=== PATIENT | female | born 1935 | race Caucasian/White ===

== ENCOUNTER → 2016-08-11 | Outpatient (CLI) | payer OTHER ==
[~2016-08-11] MED LIST: ADVAIR 250-501 EACH IH; ALDACTONE PO; ASPIRIN EC PO; ASPIRIN PO; ASPIRIN81 M2 PO; ATIVAN0.5 MG PO; CALAN SR120 MG PO; CALCIUM 500 + D1 TAB PO; CARDIZEM CD120 MG PO; CITRATE OF MAG296 ML PO; CLARITIN10 M3 PO; CLOPIDOGREL75 MG PO; COMBIVENT U/D3 M4 INH; CORDARONE200 M1 PO; COUMADIN2.5 MG PO; COUMADIN5 MG PO; CYMBALTA20 MG PO; D-20002000 UNIT PO; DARVOCET-N 1001 TAB PO; DICLOFENAC; DULCOLAX; EX-LAX; GABAPENTIN300 MG PO; GLUCOVANCE 5/501 TA1; GLYB/METFORM; HCTZ; IRON PO; IRON325 ( 651 PO; JENTADUETO 2.51 EAC2 PO; KEFLEX PO; KOMBIGLYZE XR1 EAC1 PO; LANTUS INSULIN PO; LANTUS100 UNITS/ SUBQ; LASIX20 MG PO; LEVAQUIN PO; LEVOTHYROXINE25 MC1 PO; LIPITOR40 MG PO; LIVALO2 MG PO; LOSARTAN-HCTZ1 EACH PO; MAGNESIUM400 MG PO; MEDROL PO; METOPROLOL TAR100 MG PO; MONOPRIL HCT 201 TAB PO; NEURONTIN300 MG PO; NOVOLIN 70100 UNITS/ SUBQ; OMNICEF300 MG PO; OS-CAL 500 + D500 MG PO; PACERONE PO; PLAVIX PO; PLETAL100 M1 PO; PRILOSEC PO; PROAIR HFA INH; PROTONIX PO; PROTONIX20 MG PO; SPIRONOLACTONE50 MG PO; SYMBICORT80 INH; TRENTAL400 MG PO; TYLENOL #3 PO; VALTREX500 MG PO; VERAPAMIL; VERAPAMIL ER100 MG PO; VITAMIN D2000 UNI1 PO; ZOCOR PO; ZOCOR20 MG PO
--- NOTE | ~2016-08-11 | BD1 ---
[facility] A Service of [facility] & [facility] RADIOLOGY TEXT RESULTS PATIENT: JOESPH MIDDLETON LOCATION: [facility] : [birth year] UNIT #: [id number] AGE: [address]: Michael Orta MD SEX: F ORDER DR: [id number] [facility] [address] [facility]. [place], [place] [address] [id number] O MR#: [id number] Acc #: [id number] NAME: JOESPH MIDDLETON : 1935 SEX: F STUDY DATE/TIME: 08/11/2016 11:35 UNIT: [facility] ROOM: STUDY DESCRIPTION: BD Dexa Bone Dens 1+ Site Attending Physician: Michael Orta M.D. Referring Physician: Michael Orta M.D. Ordering Physician: Michael Orta M.D. Primary Care Physician: Michael Orta M.D. MEDICAL IMAGING REPORT This report is preliminary unless electronic signature is present EXAM DXA scan 08/11/2016 HISTORY Status post menopause with no hormone replacement therapy. Osteopenia. Hysterectomy at age 38. Breast carcinoma and radiation therapy. Arthritis and diabetes. Hypertension with blood pressure medication. Thyroid medication. Smoking history for 20 years. FINDINGS Bone mineral density in the lumbar spine from L1-L4 is 1.036 g/cm2 which is 0.1 standard deviations below the mean when compared to the young adult reference population which is within the range of normal. This is 2.7 standard deviations above the mean when compared to the age-matched population. Bone mineral density in the left femoral neck was 0.74 g/cm2 which is 1.0 standard deviations below the mean when compared to the young adult reference population which is characteristic of osteopenia. This is 1.4 standard deviations above the mean when compared to the age-matched population. IMPRESSION Bone mineral density in the lumbar spine within the range of normal and within the left hip characteristic of osteopenia. Dictated by... Regan Mobley M.D. THIS IS AN ELECTRONICALLY VERIFIED REPORT Regan Mobley M.D. at 08/14/2016 2:17 PM KRT/pcl STS. [facility] A Service of [facility] & [facility] RADIOLOGY TEXT RESULTS PATIENT: JO[facility]PH MIDDLETON [id number] [birth year] UNIT #: [id number] AGE: [address]: Michael Orta MD SEX: F ORDER DR: TD: 08/11/2016 17:50 JOB #: [id number] MEDICAL IMAGING REPORT Page 1 of 1 COPY
== END | disposition home or self-care (01) ==
LOC: CWCC 11:06
DX: N95.9 Unspecified menopausal and perimenopausal disorder (principal); M85.88 Other specified disorders of bone density and structure, other site; Z88.2 Allergy status to sulfonamides; Z88.8 Allergy status to other drugs, medicaments and biological substances
CPT/HCPCS: 77080

== ENCOUNTER 2016-11-05 00:08 | Inpatient (IN) | payer OTHER ==
[~2016-11-05] VITALS: Ht 157.5 cm; Wt 75.6 kg
--- NOTE | ~2016-11-05 | CR151 ---
[facility] A Service of [facility] & [facility] RADIOLOGY TEXT RESULTS PATIENT: JOESPH MORE LOCATION: [place] [address]- : [birth year] UNIT #: [id number] AGE: [address]: Albert Rich MD SEX: F ORDER DR: [id number] [facility] [address] [place], [place] [address] [id number] I MR#: [id number] Acc #: [id number] NAME: JOESPH MORE : 1935 SEX: F STUDY DATE/TIME: 11/05/2016 00:21 UNIT: [facility] ROOM: [facility] STUDY DESCRIPTION: CR Hip Min 2 Views Rt Attending Physician: Albert Rich M.D. Ordering Physician: Eze Araujo M.D. Primary Care Physician: Michael Orta M.D. MEDICAL IMAGING REPORT This report is preliminary unless electronic signature is present EXAM Right hip and pelvis, 11/05 at 00:21 INDICATIONS Right hip pain after a fall today. FINDINGS AP pelvis was obtained in addition to a frogleg right hip. Comparison made with CT pelvis from 10/23/2013. Incidental note is made of diffuse atherosclerotic disease. No acute fracture or malalignment is identified. There is bilateral hip osteoarthritis. The femoral heads are normal without evidence of osteonecrosis. IMPRESSION Hip osteoarthritis with atherosclerotic disease. No acute fracture. Dictated by... Jean Bennett Jr., M.D. THIS IS AN ELECTRONICALLY VERIFIED REPORT Jean Bennett Jr., M.D. at 11/05/2016 9:22 PM HIRAL/patric TD: 11/05/2016 14:57 JOB #: [id number] MEDICAL IMAGING REPORT Page 1 of 1 COPY
--- NOTE | ~2016-11-05 | DS ---
Unit #: [id number] #: [id number] Patient: JOESPH MORE [id number] [address] [address] [id number] I MR#: [id number] NAME: JOESPH MORE ROOM: 55 Age: 80 Sex: F Admission Date: 11/05/2016 : 1935 Discharge Date: 11/07/2016 Attending Physician: Pam Hicks M.D. Primary Care Physician: Michael Orta M.D. DISCHARGE SUMMARY PRIMARY CARE PROVIDER Dr. Orta. PRINCIPAL DIAGNOSES 1. Sepsis secondary to Escherichia coli urinary tract infection. 2. Paroxysmal atrial fibrillation/atrial flutter with rapid ventricular response, now converted to normal sinus rhythm. 3. Subtherapeutic INR. 4. Acute coronary syndrome secondary to #1, now resolved. 5. Coronary artery disease, medical management. 6. Macrocytic anemia likely secondary to underlying obstructive sleep apnea. 7. Hypertension. 8. Diabetes mellitus type 2, insulin requiring, controlled. 9. Chronic kidney disease, stage 3 with baseline creatinine approximately 1.3, discharge creatinine 1.5. 10. Gastroesophageal reflux disease. 11. Normocytic anemia. 12. Hypothyroidism. 13. Depression. 14. Seasonal allergies. 15. Prior history of stroke. 16. History of breast cancer. 17. Obesity. 18. Moderate protein malnutrition. 19. Peripheral arterial disease. 20. Hypomagnesemia. 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 PROCEDURES 1. X-ray of right hip on 11/05/2016 with osteoarthritis and atherosclerotic disease. X-ray of lumbar spine on 11/05/2016 with diffuse degenerative changes, no acute fracture, atherosclerotic disease noted. Chest x-ray on 11/05/2016 with cardiomegaly and right basilar scarring, no acute findings. 2. Bilateral renal ultrasound on 11/05/2016 with some right-sided hydronephrosis. 3. CT of abdomen and pelvis without contrast on 11/06/2016 with no acute findings. There is a prominent extrarenal pelvis on the right, but no evidence of hydronephrosis. 4. Right lower extremity venous Doppler, which was negative for DVT. Unit #: [id number] #: [id number] Patient: JOESPH MORE CLINICAL HISTORY AND HOSPITAL COURSE Ms. More is a very nice 80-year-old female, who presents to the emergency department with fever, body aches, and right lower extremity pain. In the emergency department, the patient was found to be febrile and was also in atrial fibrillation with a heart rate of 135. Urinalysis was concerning for urinary tract infection. The patient was subsequently admitted. In regard to the patient's atrial fibrillation, Cardiology was consulted. The patient was initially placed on Cardizem drip with good rate control and this was subsequently changed to oral Cardizem. At this time, the patient has converted to normal sinus rhythm. She is maintained on chronic Coumadin, but this was mildly subtherapeutic. I am going to give her a single dose of therapeutic Lovenox today, increased the dose of Coumadin and have this followed closely by home health at home. The patient also had a mild increase in troponin. Initial troponin was 0.79, which was peak and subsequently trended down. Plan is medical management only. The patient has been changed from cilostazol to Plavix. In regard to the patient's sepsis with associated UTI, she was placed on empiric Rocephin. Urine culture has grown Escherichia coli and we will change her to Omnicef. Associated sepsis has resolved. The patient was also found to have a macrocytic anemia, vitamin B12 level is actually elevated at greater than 1000. I suspect she has some underlying obstructive sleep apnea which is untreated and this can be addressed on an outpatient basis. The patient also has chronic kidney disease, but creatinine has remained stable throughout hospitalization at 1.5. This can be followed up as an outpatient. We will continue Lasix on a p.r.n. basis only. The patient underwent right renal ultrasound due to her UTI. There is no evidence of pyelo, but she was found to have questionable right side hydronephrosis. This was not seen on CT scan. Again, there was no evidence of pyelo. This can be followed up as an outpatient. The patient will be discharged home later today. DISCHARGE CONDITION Stable. DISCHARGE STATUS Discharged to home. DISCHARGE MEDICATIONS Magnesium 400 mg p.o. b.i.d. for 1 week, Coumadin 3 mg daily with goal INR of 2 to 3, Cymbalta 20 mg daily, Claritin 10 mg daily, Valtrex 500 mg daily, Cardizem CD 120 mg b.i.d., metoprolol tartrate 200 mg b.i.d., Omnicef 300 mg p.o. b.i.d. for 5 days, Novolin 70/30 of 10 units subcu b.i.d., Plavix 75 mg daily, Protonix 40 mg daily, levothyroxine 12.5 mcg p.o. daily. DISCHARGE INSTRUCTIONS The patient was instructed to follow heart healthy, constant carb diet. She will continue Accu-Cheks as she was doing home previously. She can increase her activity as tolerated. Unit #: [id number] #: [id number] Patient: JOESPH MORE FOLLOWUP The patient will follow up with Dr. Bridges as instructed. The patient will follow up with her primary care provider, Dr. Orta in 2 weeks. She needs followup INR done on 11/08/2016 per Home Health with goal INR of 2 to 3. Needs outpatient polysomnography as well. Time spent on discharge today 34 minutes. Dictated by... Pam Hicks M.D. SWATI/chris TD: 11/09/2016 05:22 JOB #: [id number] DISCHARGE SUMMARY Page 1 of 1 X Pam Hicks MD X DISCHARGE SUMMARY
--- NOTE | ~2016-11-05 | EKG ---
PATIENT: JOESPH MORE UNIT #: [id number] Ventricular Rate: 88 BPM Atrial Rate: 288 BPM QRS Duration: 78 ms Q-T Interval: 384 ms QTC Calculation(Bezet): 464 ms P [place]: 105 degrees Calculated R [place]: 18 degrees Calculated T [place]: 95 degrees Diagnosis Line: Atrial flutter with variable A-V block with PVC's Diagnosis Line: Abnormal QRS-T angle, consider primary T wave Diagnosis Line: abnormality Diagnosis Line: Abnormal ECG Diagnosis Line: Diagnosis Line: Confirmed by GERDA MAYO MD ([id number]) on Diagnosis Line: 11/06/2016 8:19:44 PM INTERPRETING MD: EILEEN
--- NOTE | ~2016-11-05 | EKG ---
PATIENT: JOESPH MORE UNIT #: [id number] Ventricular Rate: 132 BPM Atrial Rate: 138 BPM QRS Duration: 82 ms Q-T Interval: 300 ms QTC Calculation(Bezet): 444 ms Calculated R [place]: -6 degrees Calculated T [place]: 108 degrees Diagnosis Line: Atrial flutter with rapid ventricular response Diagnosis Line: ST and T wave abnormality, consider lateral ischemia Diagnosis Line: Abnormal ECG Diagnosis Line: Diagnosis Line: Confirmed by GERDA MAYO MD ([id number]) on Diagnosis Line: 11/06/2016 8:16:23 PM INTERPRETING MD: EILEEN
--- NOTE | ~2016-11-05 | HP ---
Unit #: [id number] #: [id number] Patient: JOESPH MORE [id number] [address] [address] [id number] I MR#: [id number] NAME: JOESPH MORE ROOM: [facility] Age: 80 Sex: F Admission Date: 11/05/2016 : 1935 Attending Physician: Albert Rich M.D. Primary Care Physician: Michael Orta M.D. HISTORY AND PHYSICAL CHIEF COMPLAINT Fever, body aches, right lower extremity pain. HISTORY OF PRESENT ILLNESS The patient is an 80-year-old female with multiple comorbidities including diabetes, hypertension, history of stroke and atrial fibrillation who presented to the emergency room because of two days of generalized malaise, fatigue, body aches. Today prior to admission she developed nausea and some clear vomiting and developed some low back pain and right lower extremity pain that she describes on the lateral aspect of the thigh. In the emergency room she was noted to have a temperature of 101.1, her heart rate was 135 and she was noted to be in atrial fibrillation with a rapid ventricular response. She received a dose of Rocephin and was started on a Cardizem drip. She also received some fluids and a dose of morphine that helped control the pain. Her heart rate was controlled as well. The patient also mentions some mild cough with clear sputum that she developed over the last week but no shortness of breath. She denies any chest pain, palpitations. She does mention a history or urinary tract infections but no kidney stones. PAST MEDICAL HISTORY 1. Significant for diabetes. 2. Hypertension. 3. History of a stroke. 4. History of breast cancer, status post lumpectomy and radiation to the right breast approximately 8 years ago. 5. Chronic kidney disease stage 3. 6. History of stroke with residual left vision decreased. 7. History of a hiatal hernia, GERD, and Spring erosions. 8. History of a cholecystitis and cholecystectomy. 9. Hypothyroidism. PAST SURGICAL HISTORY 1. Hysterectomy. 2. Right lumpectomy. 3. Cholecystectomy. 4. Vein ligation. 5. 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 ALLERGIES Per records, the patient is allergic to sulfas, POPEYE inhibitors, and prednisone. Unit #: [id number] #: [id number] Patient: JOESPH MORE HOME MEDICATIONS 1. Cilostazol 100 mg p.o. b.i.d. 2. Cymbalta 20 mg daily. 3. Lasix 20 mg daily p.r.n. 4. Levothyroxine 12.5 mg p.o. daily. 5. Carotin 1 mg daily. 6. Losartan/HCTZ 50/12.5 mg daily. 7. Metoprolol 200 mg p.o. b.i.d. 8. Protonix 40 mg daily. 9. Valtrex 500 mg daily. 10. Coumadin 2.5 mg p.o. daily. FAMILY HISTORY No history of cancer. There is some heart disease in first degree relatives. SOCIAL HISTORY The patient denies smoking currently. Quit approximately 10 years ago. Used to smoke one pack a day for 40 years. Denies drug and alcohol. Using any illicit drugs. She is independent in her activities of daily living. She lives with her and her daughter. REVIEW OF SYSTEMS Significant for what was mentioned in the history of present illness. The patient also had approximately 1 week prior to admission, a problem with what seemed to be an allergic reaction in her eyes and was started on Prednisone, however, she developed elevated blood pressure, increased heart rate and elevated glucose levels. Her executive chairman of the board, (1) discontinued the prednisone and adjusted the dose of her metoprolol. Otherwise a twelve point review of systems is negative except for what is already mentioned. PHYSICAL EXAMINATION VITAL SIGNS: T. max in the emergency room 101.1, heart rate 135, respiratory rate 20, oxygen saturation 95%. Most recent vital signs: Temperature 97.9, heart rate of 100, respiratory rate of 16, blood pressure 138/67, and oxygen saturation of 94% on room air. GENERAL APPEARANCE: She is a well developed female in no acute distress. HEENT: Pupils are equal and reactive to light and accommodation. Conjunctivae is pinkish. Moist mucous membranes. NECK: Supple. No JVD. No lymphadenopathy. CHEST: Clear to auscultation bilaterally. CARDIOVASCULAR: Irregularly irregular, mildly tachycardic. ABDOMEN: Bowel sounds are present and normal. The abdomen is soft and with mild tenderness to palpation in the right lower quadrant. No guarding or rebound. BACK: There is some CVA tenderness more in the left than on the right. EXTREMITIES: There is no edema. Range of motion is preserved. No trigger points specifically on the right lower extremity. NEUROLOGIC: She is awake, alert and oriented x3. Strength is 5/5 in four extremities. DIAGNOSTIC STUDIES LABORATORY DATA: Troponin was initially elevated at 0.33 and increased to 0.79 subsequently. WBC count was 10,000. UA was abnormally suggestive of a urinary tract infection. Unit #: [id number] #: [id number] Patient: JOESPH MORE CARDIOLOGY STUDIES: A 12 lead EKG showed atrial fibrillation with rapid ventricular response with a hearty rate of 132. Repeat EKG showed some indeterminate ST-T segment abnormalities but no ST elevation. ASSESSMENT AND PLAN Ms. More is an 80-year-old lady with multiple comorbidities, presented with body aches, fever and tachycardia. 1. Sepsis and pyelonephritis. Her lactic acid was normal at 1.0. She has been started already on antibiotics with Rocephin and blood cultures have been obtain and urine culture results in process. Will continue with Rocephin, cautiously continue with IV fluids. 2. Elevated troponin likely related to ischemia and atrial fibrillation. Cardiology is consulted. The patient is already on anticoagulation that we will continue. She has received 1 dose of aspirin in the emergency room. 3. Atrial fibrillation with rapid ventricular response are controlled on Cardizem, cardiology is being consulted. 4. Right lower extremity pain, unclear etiology but could be related to a complicated urinary tract infection, perhaps kidney stones or pyelonephritis. There is no local evidence of warmth or signs of cellulitis or a local infection. The right of motion in the hip and knee are also normal. Will monitor after antibiotics treatment and consider an imaging study of the lower back depending on her progress. 5. Diabetes, will keep her on Accu-Cheks q. a.c. and q.h.s. and insulin sliding scale. 6. Hypertension, seems controlled at this time. Will continue with her home regimen. 7. Hypothyroidism, continue with levothyroxine. 8. History of stroke, continue with anticoagulation. 9. GERD and history of (1) erosions. Will keep the patient on PPIs. 10. DVT prophylaxis, the patient is on anticoagulation. Code status, the patient has expressed that she wants to pursue overall aggressive care but wants to be a DNR. Dictated by Michelle White/kolby TD: 11/05/2016 12:04 JOB #: [id number] Unit #: [id number] #: [id number] Patient: JOESPH MORE HISTORY AND PHYSICAL Page 1 of 1 X X HISTORY AND PHYSICAL
--- NOTE | ~2016-11-05 | CR72 ---
[facility] A Service of [facility] & [facility] RADIOLOGY TEXT RESULTS PATIENT: JOESPH MORE LOCATION: [place] [address]- : [birth year] UNIT #: [id number] AGE: [address]: Albert Rich MD SEX: F ORDER DR: [id number] [facility] [address] [place], [place] [address] [id number] I MR#: [id number] Acc #: [id number] NAME: JOESPH MORE : 1935 SEX: F STUDY DATE/TIME: 11/05/2016 03:21 UNIT: [facility] ROOM: [facility] STUDY DESCRIPTION: CR Chest Single View Portable Attending Physician: Albert Rich M.D. Ordering Physician: Eze Araujo M.D. Primary Care Physician: Michael Orta M.D. MEDICAL IMAGING REPORT This report is preliminary unless electronic signature is present EXAM Portable chest, 11/05 at 03:21 hours INDICATION Shortness of air today. Fall today. FINDINGS AP portable chest is compared with 04/12/2013. Heart is enlarged. Lung volumes are low. Pleural plaques noted right hemithorax. There is some scarring at the right base. No pneumothorax is seen. IMPRESSION Stable cardiomegaly. Low lung volumes with right basilar scarring. Right side pleural plaque noted. No definite acute findings in the chest. Dictated by... Jean Bennett Jr., M.D. THIS IS AN ELECTRONICALLY VERIFIED REPORT Jean Bennett Jr., M.D. at 11/05/2016 9:23 PM HIRAL/patric TD: 11/05/2016 15:21 JOB #: [id number] MEDICAL IMAGING REPORT Page 1 of 1 COPY
--- NOTE | ~2016-11-05 | CO ---
Unit #: [id number] #: [id number] Patient: JOESPH MORE [id number] [address] [place], [place] [address] [id number] I MR#: [id number] NAME: JOESPH MORE ROOM: 55 Age: 80 Sex: F Admission Date: 11/05/2016 : 1935 Attending Physician: Albert Rich M.D. Primary Care Physician: Michael Orta M.D. CONSULTATION REPORT REASON FOR CONSULTATION Elevated troponin, and atrial fibrillation with rapid ventricular response. HISTORY OF PRESENT ILLNESS This is a pleasant 80-year-old, female with multiple medical issues. She has a past medical history significant for diabetes mellitus, hypertension, hyperlipidemia, stroke in 2011, paroxysmal atrial fibrillation, on anticoagulation with Coumadin, degenerative joint disease, breast cancer, status post lumpectomy and radiation. She states she follows with Dr. Phillips at [facility] for her heart issues. The patient initially presented to the emergency room secondary to complaints of not feeling well for the past several days. She reports yesterday she developed pain in her upper left thigh area as well as shaking chills associated with vomiting and just generalized malaise and fatigue with body aches. In the emergency room, she was noted to have a temperature of a 101.1, was noted to be in atrial fibrillation with rapid ventricular response rate of 135 beats per minute. She did get IV antibiotics, and was given Cardizem bolus and started on a Cardizem drip. She denies any complaints of chest pain. She does report she felt intermittent palpitations and occasional shortness of breath. EKG shows atrial fibrillation at 97 beats per minute. Septal infarct cannot be excluded. No acute ischemic changes noted. Initial point of care troponin was 0.33, repeat was 0.43, and this morning's troponin was 0.79. At present, she is resting in bed. Her daughter is at bedside. The patient was also noted to have a urinary tract infection and pyelonephritis. She denies any complaints of chest pain. The patient did have cardiac catheterization in 2004, which showed normal coronary anatomy. 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 We were asked to see for evaluation of the above. PAST MEDICAL HISTORY 1. Hypertension. 2. Hyperlipidemia. 3. 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 4. A 2D echocardiogram in 2011 showed ejection fraction of greater than 55% with moderate mitral regurgitation and a trace of tricuspid regurgitation. 5. History of stroke in 2011. 6. History of breast cancer status post lumpectomy and radiation approximately eight years ago. 7. Chronic kidney disease. Unit #: [id number] #: [id number] Patient: JOESPH MORE 8. Hypothyroidism. PAST SURGICAL HISTORY Hysterectomy, right breast lumpectomy, cholecystectomy, vein ligation, and cardiac catheterization. ALLERGIES Sulfa, POPEYE inhibitors and prednisone. MEDICATIONS Home medications, Pletal 100 mg p.o. b.i.d., Cymbalta 20 mg p.o. daily, Lasix 20 mg p.o. daily p.r.n., levothyroxine 12.5 mg p.o. daily, Claritin 10 mg p.o. daily, Losartan/hydrochlorothiazide 50/12.5 one p.o. daily, metoprolol tartrate 200 mg p.o. b.i.d., Protonix 40 mg p.o., Valtrex 500 mg p.o. daily, Coumadin 2.5 mg p.o. daily. FAMILY HISTORY Denies coronary artery disease. SOCIAL HISTORY The patient lives with her and sister. She is a reformed tobacco user. Quit approximately 40 years ago. Prior to that, she smoked about a pack a day for 35 plus years. Denies illicit drugs or alcohol. REVIEW OF SYSTEMS Negative except for what was stated above in the HPI. PHYSICAL EXAMINATION VITAL SIGNS: T-max of 101.1 respiratory rate 18, pulse 90s to 102, blood pressure 138/67, and 151/80. GENERAL: This is a very pleasant 80-year-old female, in no acute distress. HEENT: Head is atraumatic and normocephalic. Pupils are equal and round. Mucous membranes are moist. Neck, trachea supple. No lymphadenopathy. Positive for JVD. LUNGS: Clear to auscultation anterior. Some fine rales in the bases with scattered wheezing. CARDIOVASCULAR: S1, S2. Irregularly irregular. No murmur, gallop, or rub. ABDOMEN: Soft, nontender, and nondistended. Bowel sounds are present. EXTREMITIES: Pulses are palpable. No clubbing, cyanosis, or edema is noted. NEUROLOGIC: She is awake, alert, and oriented. She moves extremities equally. She follows commands with ease. DIAGNOSTIC STUDIES Troponin initial was 0.33, repeat was 0.43, this morning was it was 0.79. Sodium 134, potassium 3.8, chloride 103, CO2 of 23, BUN 29, creatinine 1.5, glucose 167. PT 22.1. INR 2.0. D-dimer 631. Hemoglobin 12.5, and hematocrit 38.0. WBCs 10.6, and platelet count of 242. The lipid panel is currently pending. Urinalysis shows 3+ leukocyte esterase, positive for nitrates positive for protein, 1+, blood, rbc's 5 to 10, wbc's 100 to 200, 4+ bacteria. Culture is pending. She also has blood cultures which were pending. Imaging, x-ray of the right hip shows hip osteoarthritis with atherosclerotic disease. No acute fracture. Unit #: [id number] #: [id number] Patient: JOESPH MORE Lumbar spine x-ray shows fairly diffuse degenerative disease. No acute fracture. Also noted extensive atherosclerotic disease. Cardiovascular EKG shows atrial fibrillation with rate of 97 beats per minute, cannot rule out septal infarct. QTc interval 477 milliseconds. No acute ischemic change is seen. IMPRESSION 1. Urinary tract infection, culture pending. 2. Pyelonephritis per primary MD. She has been started on antibiotics and blood cultures are currently pending. 3. Elevated troponin initially 0.33 to 0.43. This morning, it peaked at 0.79. 4. Rule in for non ST-elevation myocardial infarction. 5. Atrial fibrillation with rapid ventricular response. 6. Diabetes mellitus. 7. Hypertension. 8. Hyponatremia. 9. History of stroke. 10. History of breast cancer status post lumpectomy and radiation. 11. Chronic kidney disease. 12. Hypothyroidism. 13. We have been asked to see the patient secondary to elevated troponin and rapid atrial fibrillation with rapid ventricular response. She is currently on a Cardizem drip. This has been discontinued and the patient has been started on Cardizem 60 mg p.o. q.6, hold for systolic blood pressure less than 100 and heart rate less than 55. Her troponin is also currently 0.79. EKG shows no acute ischemic change; however, she has ruled in for non-ST elevated myocardial infarction. She did have a cardiac catheterization in 2004, which showed normal coronary arteries. She currently has an INR of 2.0 and is currently receiving IV fluids. Her IV fluids have been discontinued. Her losartan hydrochlorothiazide has also been discontinued. She will be started on Plavix 75 mg p.o. daily as well as given one time dose of Lasix now as she appears to be fluid overloaded. We will continue to trend cardiac enzymes. Repeat EKG and PT/INR tomorrow in the morning as well as a CBC, BMP and a BNP. If her troponin continues to climb, would recommend cardiac catheterization. At this time. We will continue with medical prescription for coronary artery disease. Further recommendations to follow pending Dr. Bridges's assessment. She currently has a venous Doppler of her lower extremities, which is pending. Dictated by... Lacy Nelson A.P.R.N. LMW/modl TD: 11/06/2016 02:34 JOB #: [id number] Unit #: [id number] #: [id number] Patient: JOESPH MORE CONSULTATION REPORT Page 1 of 1 X Lacy Nelson APRN X CONSULTATION REPORT
--- NOTE | ~2016-11-05 | CT4 ---
[facility] A Service of [facility] RADIOLOGY TEXT RESULTS PATIENT: JOESPH MORE LOCATION: [facility] 55-01 : 33 UNIT #: [id number] AGE: [address]: Pam Hicks MD SEX: F ORDER DR: [id number] [facility] [address]. [place], [place] [address] [id number] I MR#: [id number] Acc #: [id number] NAME: JOESPH MORE : 1935 SEX: F STUDY DATE/TIME: 11/06/2016 12:12 UNIT: [facility] ROOM: [facility] STUDY DESCRIPTION: CT Abd and Pelv Wo Cont Attending Physician: Pam Hicks M.D. Ordering Physician: Pam Hicks M.D. Primary Care Physician: Michael Orta M.D. MEDICAL IMAGING REPORT This report is preliminary unless electronic signature is present EXAM CT abdomen and pelvis without contrast INDICATION Generalized body aches and fever since 11/05/2016. Right-sided hydronephrosis on previous ultrasound. PROCEDURE Unenhanced CT abdomen and pelvis. This CT exam was performed with one or more of the following radiation dose reduction techniques: automatic exposure control, adjustment of mA and/or kV according to patient size, and iterative reconstruction. COMPARISON FINDINGS Persistent bronchiectasis and volume loss in the right lower lobe. There are a few scattered areas of tree-in-bud nodularity throughout the right lower lobe, suggesting infectious or inflammatory small airways disease. Cardiomegaly. ABDOMEN WITHOUT CONTRAST: The liver, spleen, pancreas unremarkable. Previous cholecystectomy. Common duct measures up to 1.4 cm and is stable. No evidence for radiodense common duct stone. Small hiatal hernia. Uncomplicated sigmoid diverticula. Moderate colonic stool burden. Appendix is normal. There are bilateral benign adrenal adenomas which are unchanged. Mild prominence of the right renal pelvis without hydronephrosis, most in [facility] A Service of [facility] RADIOLOGY TEXT RESULTS PATIENT: JOESPH MORE LOCATION: [facility] 552-01 : 33 UNIT #: [id number] AGE: [address]: Pam Hicks MD SEX: F ORDER DR: keeping with a prominent extrarenal pelvis. This is stable. No radiodense urinary system calculus. PELVIS WITHOUT CONTRAST: No radiodense bladder calculus. Previous hysterectomy and no pelvic mass. No aggressive-appearing bone lesion. IMPRESSION 1. No clearly acute finding in the abdomen or pelvis. 2. Prominent extrarenal pelvis on the right is stable since the previous study and there is no hydronephrosis. 3. Incidental findings are detailed above. Dictated by... William Isabel M.D. THIS IS AN ELECTRONICALLY VERIFIED REPORT William Isabel M.D. at 11/07/2016 8:29 AM ADIN/nette TD: 11/06/2016 22:16 JOB #: [id number] MEDICAL IMAGING REPORT Page 1 of 1 COPY
--- NOTE | ~2016-11-05 | US77 ---
[facility] A Service of [facility] RADIOLOGY TEXT RESULTS PATIENT: JOESPH MORE LOCATION: [place] [address] : [birth year] UNIT #: [id number] AGE: [address]: Pam Hicks MD SEX: F ORDER DR: [id number] [place] [id number] [place], [place] [address] [id number] I MR#: [id number] Acc #: [id number] NAME: JOESPH MORE : 1935 SEX: F STUDY DATE/TIME: 11/05/2016 10:14 UNIT: [facility] ROOM: [facility] STUDY DESCRIPTION: US Kidney Bilateral Complete Attending Physician: Albert Rich M.D. Ordering Physician: Physician Non-Staff Primary Care Physician: Michael Orta M.D. MEDICAL IMAGING REPORT This report is preliminary unless electronic signature is present EXAM Renal ultrasound INDICATIONS Pyelonephritis. Patient has a GFR of 32.1. TECHNIQUE Thomas-scale and color Doppler sonographic images were obtained through the kidneys and bladder. FINDINGS This patient does appear to have at least mild right-sided hydronephrosis. Visualization of the left kidney, in particular, is extremely poor although I do not see any maxi hydronephrosis on the left. Urinary bladder appears unremarkable. IMPRESSION Patient does appear to have some hydronephrosis on the right, etiology is uncertain on the basis of these images. Further evaluation with CT is recommended. Please note contrast-enhanced CT would be far more sensitive for the evaluation of pyelonephritis. No obvious hydronephrosis is seen on the left. Dictated by... Mindi Ventura M.D. THIS IS AN ELECTRONICALLY VERIFIED REPORT Mindi Ventura M.D. at 11/06/2016 5:38 PM AFF/psc TD: 11/05/2016 20:53 JOB #: [id number] [facility] A Service [facility] RADIOLOGY TEXT RESULTS PATIENT: JOESPH MORE [facility] [address] [id number] [birth year] UNIT #: [id number] AGE: [address]: Pam Hicks MD SEX: F ORDER DR: MEDICAL IMAGING REPORT Page 1 of 1 COPY
--- NOTE | ~2016-11-05 | EKG ---
PATIENT: JOESPH MORE UNIT #: [id number] Ventricular Rate: 105 BPM Atrial Rate: 111 BPM QRS Duration: 74 ms Q-T Interval: 376 ms QTC Calculation(Bezet): 496 ms Calculated R [place]: 6 degrees Calculated T [place]: 108 degrees Diagnosis Line: Atrial flutter with rapid ventricular response Diagnosis Line: Abnormal QRS-T angle, consider primary T wave Diagnosis Line: abnormality Diagnosis Line: Abnormal ECG Diagnosis Line: Diagnosis Line: Confirmed by GERDA MAYO MD ([id number]) on Diagnosis Line: 11/06/2016 8:24:36 PM INTERPRETING MD: EILEEN
--- NOTE | ~2016-11-05 | CR181 ---
[facility] A Service of [facility] RADIOLOGY TEXT RESULTS PATIENT: JOESPH MORE LOCATION: [place] [address]- : [birth year] UNIT #: [id number] AGE: [address]: Albert Rich MD SEX: F ORDER DR: [id number] [facility] [address] [place], [place] [address] [id number] I MR#: [id number] Acc #: [id number] NAME: JOESPH MORE : 1935 SEX: F STUDY DATE/TIME: 11/05/2016 02:18 UNIT: [facility] ROOM: [facility] STUDY DESCRIPTION: CR Lumbar Spine 2 or 3 Views Attending Physician: Albert Rich M.D. Ordering Physician: Eze Araujo M.D. Primary Care Physician: Michael Orta M.D. MEDICAL IMAGING REPORT This report is preliminary unless electronic signature is present EXAM Lumbar spine, 11/05 at 02:18 INDICATIONS Low back pain after a fall today. FINDINGS Three views of the lumbar spine are compared with 07/06/2013. There is multilevel degenerative disease as seen previously. This consists of degenerative disc disease as well as facet arthropathy. No acute compression fractures are identified. Alignment is stable. Note is made of fairly extensive atherosclerotic disease. IMPRESSION Fairly diffuse degenerative disease as seen previously. No acute fractures. Also noted is extensive atherosclerotic disease. Dictated by... Jean Bennett Jr., M.D. THIS IS AN ELECTRONICALLY VERIFIED REPORT Jean Bennett Jr., M.D. at 11/05/2016 9:22 PM HIRAL/patric TD: 11/05/2016 14:28 JOB #: [id number] MEDICAL IMAGING REPORT Page 1 of 1 COPY
--- NOTE | ~2016-11-05 | EKG ---
PATIENT: JOESPH MORE UNIT #: [id number] Ventricular Rate: 97 BPM Atrial Rate: 89 BPM QRS Duration: 78 ms Q-T Interval: 376 ms QTC Calculation(Bezet): 477 ms Calculated R [place]: 3 degrees Calculated T [place]: 69 degrees Diagnosis Line: Atrial fibrillation Diagnosis Line: Septal infarct , age undetermined Diagnosis Line: Abnormal ECG Diagnosis Line: Diagnosis Line: Confirmed by PHUONG FRANK MD ([id number]) on Diagnosis Line: 11/06/2016 7:54:38 AM INTERPRETING MD: ZAC SERVIN
--- NOTE | ~2016-11-05 | EKG ---
PATIENT: JOESPH MORE UNIT #: [id number] Ventricular Rate: 100 BPM Atrial Rate: 267 BPM QRS Duration: 80 ms Q-T Interval: 370 ms QTC Calculation(Bezet): 477 ms Calculated R [place]: 9 degrees Calculated T [place]: 57 degrees Diagnosis Line: Atrial flutter with variable A-V block Diagnosis Line: Poor R wave progression questionable lead position Diagnosis Line: or body habitus Diagnosis Line: Abnormal ECG Diagnosis Line: When compared with ECG of 05-NOV-2016 02:10, Diagnosis Line: (unconfirmed) Diagnosis Line: rate slower Diagnosis Line: Diagnosis Line: Confirmed by GERDA MAYO MD ([id number]) on Diagnosis Line: 11/06/2016 8:18:05 PM INTERPRETING MD: EILEEN
--- NOTE | ~2016-11-05 | EKG ---
PATIENT: JOESPH MORE UNIT #: [id number] Ventricular Rate: 89 BPM Atrial Rate: 267 BPM QRS Duration: 66 ms Q-T Interval: 376 ms QTC Calculation(Bezet): 457 ms P [place]: 83 degrees Calculated R [place]: 2 degrees Calculated T [place]: 100 degrees Diagnosis Line: Atrial flutter with variable A-V block Diagnosis Line: Nonspecific ST and T wave abnormality Diagnosis Line: Abnormal ECG Diagnosis Line: When compared with ECG of 05-NOV-2016 16:15, Diagnosis Line: (unconfirmed) Diagnosis Line: Non-specific change in ST segment in Anterior Diagnosis Line: leads Diagnosis Line: Confirmed by GERDA MAYO MD ([id number]) on Diagnosis Line: 11/06/2016 8:24:56 PM INTERPRETING MD: EILEEN
--- NOTE | ~2016-11-05 | US85 ---
[facility] A Service of [facility] RADIOLOGY TEXT RESULTS PATIENT: JOESPH MORE LOCATION: [place] [address] : [birth year] UNIT #: [id number] AGE: [address]: Pam Hicks MD SEX: F ORDER DR: [id number] [facility] [address]. [place], [place] [address] [id number] I MR#: [id number] Acc #: [id number] NAME: JOESPH MORE : 1935 SEX: F STUDY DATE/TIME: 11/05/2016 10:24 UNIT: [facility] ROOM: [facility] STUDY DESCRIPTION: US LE Veins Unilat or Ltd Stdy Attending Physician: Albert Rich M.D. Ordering Physician: Ryann Ruano M.D. Primary Care Physician: Michael Orta M.D. MEDICAL IMAGING REPORT This report is preliminary unless electronic signature is present EXAM Right lower extremity venous Doppler. INDICATIONS Right lower extremity/thigh pain for 1 day. TECHNIQUE Thomas-scale, color Doppler and spectral Doppler waveform analysis was performed through the patient's right lower extremity. FINDINGS The examination is negative. There is no evidence of lower extremity deep venous thrombus from the groin to the lower calf. Visualized greater saphenous vein is also patent. IMPRESSION Negative examination. No evidence of right lower extremity deep venous thrombosis. Dictated by... Mindi Ventura M.D. THIS IS AN ELECTRONICALLY VERIFIED REPORT Mindi Ventura M.D. at 11/06/2016 5:38 PM AFF/psc TD: 11/05/2016 20:57 JOB #: [id number] MEDICAL IMAGING REPORT Page 1 of 1 COPY
--- NOTE | ~2016-11-05 | DS ---
Unit #: [id number] #: [id number] Patient: JOESPH MORE [id number] [address] [address] [id number] I MR#: [id number] NAME: JOESPH MORE ROOM: [facility] Age: 80 Sex: F Admission Date: 11/05/2016 : 1935 Discharge Date: 11/07/2016 Attending Physician: Pam Hicks M.D. Primary Care Physician: Michael Orta M.D. DISCHARGE SUMMARY ADDENDUM DISCHARGE MEDICATIONS Lipitor 40 mg p.o. q.h.s. Dictated by... Michelle Bocanegra/chris TD: 11/09/2016 07:16 JOB #: [id number] DISCHARGE SUMMARY Page 1 of 1 X Pam Hicks MD X DISCHARGE SUMMARY
[~2016-11-05 00:08] MED LIST changes: -CARDIZEM CD120 MG PO; -CLARITIN10 M3 PO; -CLOPIDOGREL75 MG PO; -CYMBALTA20 MG PO; -LASIX20 MG PO; -LEVOTHYROXINE25 MC1 PO; -LIPITOR40 MG PO; -LOSARTAN-HCTZ1 EACH PO; -MAGNESIUM400 MG PO; -METOPROLOL TAR100 MG PO; -NOVOLIN 70100 UNITS/ SUBQ; -OMNICEF300 MG PO; -PLETAL100 M1 PO; -PROTONIX20 MG PO; -VALTREX500 MG PO
[2016-11-05 01:08] LABS: POC - CKMB 4.9 ng/mL (0.0-7.9); POC - TROPONIN 0.33 ng/mL (<=0.05)
[2016-11-05 01:55] LABS: BASOPHIL% 0.3 % (0-2.5); EOSINOPHIL# 0.1 X10e3 (0-0.7); HEMOGLOBIN 12.5 gm/dL (12.0-16.0); LYMPHOCYTE# 0.7 X10e3 (1.0-3.5); LYMPHOCYTE% 6.2 % (17.0-45.0); MEAN CELL VOLUME 103.5 FL (83-96); MEAN CORPUSCULAR HGB CONC 32.9 g/dL (30-36); MEAN PLATELET VOLUME 8.7 FL (6.5-11.5); MONOCYTE# 0.9 X10e3 (0-1.0); MONOCYTE% 8.9 % (3.0-12.0); NEUTROPHIL# 8.8 X10e3 (1.5-7.1); NEUTROPHIL% 83.6 % (40-75); PLATELET COUNT 242 X10e3 (140-420); RED BLOOD COUNT 3.68 X10e (3.90-5.30); RED CELL DISTRIBUTION WIDTH 13.9 % (11.0-15.5); WHITE BLOOD COUNT 10.6 X10e3 (4.0-10.5)
[2016-11-05 01:56] LABS: DIFF IND NO
[2016-11-05 02:10] LABS: PARTIAL THROMBOPLASTIN TIME 46.6 SECONDS (23.5-31.3); PROTHROMBIN TIME (PATIENT) 22.1 SECONDS (10.0-11.7)
[2016-11-05 02:13] LABS: ALBUMIN SERUM 3.5 g/dL (3.5-5.0); BILIRUBIN, DIRECT 0.1 mg/dL (0.0-0.2); BILIRUBIN,INDIRECT 0.8 mg/dL (0.0-0.9); BILIRUBIN,TOTAL 0.9 mg/dL (0.2-2.0); BUN/CREATININE RATIO 22.3; CALCIUM SERUM 8.7 mg/dL (8.4-10.2); CREATININE SERUM 1.3 mg/dL (0.6-1.4); GLOM FILT RATE Estimated 38.2 mL/min (>60); POTASSIUM 3.6 mmol/L (3.5-5.1); PROTEIN TOTAL SERUM 7.2 g/dL (6.0-8.3)
[2016-11-05 03:07] LABS: URINE SOURCE CLEAN CATCH
[2016-11-05 03:19] LABS: URINE APPEARANCE CLOUDY; URINE BILIRUBIN NEG (NEG); URINE BLOOD 1+ (NEG); URINE COLOR YELLOW; URINE GLUCOSE NEG (NEG); URINE KETONE NEG (NEG); URINE LEUKOCYTE ESTERASE 3+ (NEG); URINE NITRATE POS (NEG); URINE PROTEIN 2+ (NEG); URINE SPECIFIC GRAVITY 1.017 (1.003-1.035); URINE UROBILINOGEN 0.2 MG/DL (NEG)
[2016-11-05 03:22] LABS: CULTURE INDICATED? YES; URINE BACTERIA AUWI 4+ (NEGATIVE); URINE SQUAMOUS EPITHELIAL CELL FEW /[HPF]; UWBCS1 AUWI 100-200 (0-5)
[2016-11-05 03:36] LABS: POC - CKMB 4.4 ng/mL (0.0-7.9); POC - TROPONIN 0.43 ng/mL (<=0.05)
[2016-11-05] MEDS ORDERED: PLETAL100 M1 PO (05:02)
[2016-11-05] MEDS ORDERED: CYMBALTA20 MG PO (05:02)
[2016-11-05] MEDS ORDERED: LASIX20 MG PO (05:03)
[2016-11-05] MEDS ORDERED: LEVOTHYROXINE25 MC1 PO (05:04)
[2016-11-05] MEDS ORDERED: CLARITIN10 M3 PO (05:08)
[2016-11-05] MEDS ORDERED: LOSARTAN-HCTZ1 EACH PO (05:08)
[2016-11-05] MEDS ORDERED: METOPROLOL TAR100 MG PO (05:10)
[2016-11-05] MEDS ORDERED: PROTONIX20 MG PO (05:10)
[2016-11-05] MEDS ORDERED: VALTREX500 MG PO (05:11)
[2016-11-05] MEDS ORDERED: COUMADIN2.5 MG PO (05:13)
[2016-11-05 05:22] LABS: BUN/CREATININE RATIO 19.33; CALCIUM SERUM 8.3 mg/dL (8.4-10.2); CREATININE SERUM 1.5 mg/dL (0.6-1.4); GLOM FILT RATE Estimated 32.1 mL/min (>60); POTASSIUM 3.8 mmol/L (3.5-5.1)
[2016-11-06 07:17] LABS: HEMATOCRIT 36.4 % (35.0-45.0); HEMOGLOBIN 11.9 gm/dL (12.0-16.0); MEAN CELL VOLUME 104.6 FL (83-96); MEAN CORPUSCULAR HEMOGLOBIN 34.2 PG (28-34); MEAN CORPUSCULAR HGB CONC 32.7 g/dL (30-36); MEAN PLATELET VOLUME 8.2 FL (6.5-11.5); RED BLOOD COUNT 3.48 X10e (3.90-5.30); RED CELL DISTRIBUTION WIDTH 14.2 % (11.0-15.5); WHITE BLOOD COUNT 7.5 X10e3 (4.0-10.5)
[2016-11-06 07:25] LABS: INR 1.7
[2016-11-06 07:39] LABS: ALBUMIN SERUM 2.9 g/dL (3.5-5.0); BILIRUBIN,TOTAL 0.3 mg/dL (0.2-2.0); BUN/CREATININE RATIO 18.66; CALCIUM SERUM 8.2 mg/dL (8.4-10.2); CREATININE SERUM 1.5 mg/dL (0.6-1.4); GLOM FILT RATE Estimated 32.1 mL/min (>60); MAGNESIUM 1.4 mg/dL (1.6-3.0); POTASSIUM 3.9 mmol/L (3.5-5.1)
[2016-11-07 06:46] LABS: HEMATOCRIT 35.1 % (35.0-45.0); HEMOGLOBIN 11.5 gm/dL (12.0-16.0); MEAN CELL VOLUME 103.9 FL (83-96); MEAN CORPUSCULAR HEMOGLOBIN 33.9 PG (28-34); MEAN CORPUSCULAR HGB CONC 32.6 g/dL (30-36); MEAN PLATELET VOLUME 8.1 FL (6.5-11.5); RED BLOOD COUNT 3.38 X10e (3.90-5.30); RED CELL DISTRIBUTION WIDTH 13.6 % (11.0-15.5); WHITE BLOOD COUNT 6.3 X10e3 (4.0-10.5)
[2016-11-07 06:57] LABS: INR 1.5; PROTHROMBIN TIME (PATIENT) 16.6 SECONDS (10.0-11.7)
[2016-11-07 07:05] LABS: BUN/CREATININE RATIO 18.66; CALCIUM SERUM 8.5 mg/dL (8.4-10.2); CREATININE SERUM 1.5 mg/dL (0.6-1.4); GLOM FILT RATE Estimated 32.1 mL/min (>60); MAGNESIUM 1.6 mg/dL (1.6-3.0); POTASSIUM 3.6 mmol/L (3.5-5.1)
[2016-11-07] MEDS ORDERED: MAGNESIUM400 MG PO (11:41)
[2016-11-07] MEDS ORDERED: CARDIZEM CD120 MG PO (11:42)
[2016-11-07] MEDS ORDERED: OMNICEF300 MG PO (11:42)
[2016-11-07] MEDS ORDERED: NOVOLIN 70100 UNITS/ SUBQ (11:43)
[2016-11-07] MEDS ORDERED: CLOPIDOGREL75 MG PO (11:44)
[2016-11-07] MEDS ORDERED: LIPITOR40 MG PO (11:44)
== END 2016-11-07 14:19 | disposition home or self-care (01) | DRG 872 ==
LOC: CED 00:08 → C5B 03:55 → CEDOF 03:55 → CED 04:10 → C5B 04:10 → CEDOF 08:06 → C5B 08:06
PROVIDERS: Emergency Medicine; Internal Medicine; Internal Medicine Cardiovascular Disease
DX: A41.9 Sepsis, unspecified organism (principal); I24.8 Other forms of acute ischemic heart disease; E11.22 Type 2 diabetes mellitus with diabetic chronic kidney disease; N12 Tubulo-interstitial nephritis, not specified as acute or chronic; N13.30 Unspecified hydronephrosis; E87.1 Hypo-osmolality and hyponatremia; I12.9 Hypertensive chronic kidney disease with stage 1 through stage 4 chronic kidney disease, or unspecified chronic kidney disease; N18.3 Chronic kidney disease, stage 3 (moderate); I48.91 Unspecified atrial fibrillation; Z79.01 Long term (current) use of anticoagulants; Z79.4 Long term (current) use of insulin; M79.604 Pain in right leg; E03.9 Hypothyroidism, unspecified; Z86.73 Personal history of transient ischemic attack (TIA), and cerebral infarction without residual deficits; R11.2 Nausea with vomiting, unspecified; R19.7 Diarrhea, unspecified; D53.9 Nutritional anemia, unspecified; K21.9 Gastro-esophageal reflux disease without esophagitis; Z88.8 Allergy status to other drugs, medicaments and biological substances; Z88.2 Allergy status to sulfonamides; Z82.49 Family history of ischemic heart disease and other diseases of the circulatory system; Z90.49 Acquired absence of other specified parts of digestive tract; Z85.3 Personal history of malignant neoplasm of breast; Z87.440 Personal history of urinary (tract) infections
CPT/HCPCS: 36415; 71010; 72100; 73502; 74176; 76770; 80048; 80053; 80061; 80076; 81003; 82550; 82553; 82607; 82947; 83605; 83735; 83880; 84484; 85025; 85027; 85379; 85610; 85730; 87040; 87086; 87088; 87186; 93005; 93971; 96361; 96374; 96375; 97161; 97166; 99291; G8978-GP; G8979-GP; G8980-GP; G8987-GO; G8988-GO; G8989-GO; J0696; J1650; J1815; J1940; J2270; J2405; J3475